=== PATIENT | male | born 1970 | race African-American/Black ===

== ENCOUNTER 2017-12-30 19:02 | Emergency (ER) | payer MEDICAID ==
[~2017-12-30] VITALS: Ht 190.5 cm; Wt 102.1 kg
[2017-12-30] MEDS ORDERED: AMOXIL250 MG ORAL (19:04)
--- NOTE | 2017-12-30 19:26 | Emergency Room Report ---
History of Present Illness General Chief Complaint: General Complaint Source: Patient Present Illness HPI 47 yo male patient presents to ER BIB ambulance complaining of cough with sputum and flu-like symptoms for a few days. EMS reported that he walked to EMS to be driven to ER. Reports going to [facility] but left before being seen because it was "too crowded." Patient reports hx of HIV, reports viral load is undetectable, reports CD4 count is high; reports taking antiviral medications. Reports has not taken medication today. Denies fever, chest pain, SOB. Complains of generalized abdominal pain and diarrhea x1 day; reports constipation symptoms for 3 days; states took enema today and had a bowel movement. Denies blood in stool. Also complains of vomiting; reports one episode of vomiting earlier today without blood following coughing symptoms. Patient reports able to eat food without difficulty. Sebastián ENRIQUEZ, vision changes, dysuria, hematuria. Allergies: Coded Allergies: No Known Allergies (Unverified , 12/30/17) Patient History Past Medical History: see triage record, HIV Reviewed Nursing Documentation: PMH: Agreed, PSxH: Agreed Review of Systems All Other Systems: negative except mentioned in HPI Physical Exam Vital Signs Date Time Temp Pulse Resp B/P (MAP) Pulse Ox O2 Delivery O2 Flow Rate FiO2 12/30/17 18:57 100.8 87 20 134/78 99 Room Air 100.8 Sp02 EP Interpretation: reviewed, normal General Appearance: well appearing, no apparent distress, alert, GCS 15, non- toxic Head: normocephalic, atraumatic Eyes: bilateral eye normal inspection, bilateral eye PERRL ENT: hearing grossly normal, normal pharynx, normal voice, TMs + canals normal , uvula midline, moist mucus membranes Neck: normal inspection, full range of motion, no bony tend Respiratory: normal inspection, lungs clear, normal breath sounds, no rhonchi, no accessory muscle use, no wheezing, speaking full sentences Cardiovascular #1: regular rate, rhythm Gastrointestinal: normal bowel sounds, non tender, soft, no mass, no organomegaly, non-distended, no guarding, no rebound Genitourinary: no CVA tenderness Musculoskeletal: back normal, digits/nails normal, gait/station normal, normal range of motion, no calf tenderness Neurologic: alert, oriented x3, responsive, motor strength/tone normal, sensory intact, normal gait Psychiatric: mood/affect normal Skin: no rash Lymphatic: adenopathy Medical Decision Making PA Attestation Dr. Franz is my supervising Physician whom patient management has been discussed with. Diagnostic Impression: Primary Impression: Cough Additional Impressions: Diarrhea Vomiting ER Course Pt. presents to the ED c/o cough, vomiting, and diarrhea. Ddx considered but are not limited to viral syndrome, gastritis, enteritis, UTI. Low suspicion for appendicitis at this time. Generalized abdominal pain, no localized abdominal pain on physical exam. Does not require imaging at this time. Vital signs: are WNL, pt. is afebrile. Ordered labs, pain medication, UA and NS. ER COURSE: UA unremarkable, negative for nitrites. Negative for urinary symptoms. Labs unremarkable, mild elevation in WBC likely due to cough and diarrhea symptoms. Discuss results with patient. Instructed patient to followup with primary care provider for followup of lab results. Likely viral cause of symptoms. Does not require treatment with antibiotics at this time. Diarrhea likely secondary to constipation symptoms. Drink plenty of fluids, do not become dehydrated. Patient feeling hungry, requesting sandwich; sandwich provided to patient. Does not require rx for nausea medication. Patient reports feeling much better following administration of fluids and pain medication. Patient reports understanding and agreement to treatment plan. Patient seen and evaluated by Dr. Franz; reviewed labs with Dr. Franz; patient stable for discharge to home. DISCHARGE: Rx provided for Tylenol Rx provided for Promethazine cough syrup. Patient instructed to remain hydrated, drink plenty of fluids. Patient questions asked and answered. Patient states understanding and agreement to treatment plan. At this time pt. is stable for d/c to home. Patient is resting comfortably, laughing, in no acute distress, nontoxic appearing. Will provide printed patient care instructions, and any necessary prescriptions. Care plan and follow up instructions have been discussed with the patient prior to discharge. Patient instructed to followup with PCP in 3-5 days. Patient questions asked and answered. ER precautions given; patient instructed to return to ER for new or worsening of symptoms including but not limited to fever, intractable vomiting, severe abdominal pain, blood in stool. Labs Test 12/30/17 19:50 White Blood Count 12.5 K/UL (4.8-10.8) Red Blood Count 3.79 M/UL (4.70-6.10) Hemoglobin 12.3 G/DL (14.2-18.0) Hematocrit 35.8 % (42.0-52.0) Mean Corpuscular Volume 94 FL (80-99) Mean Corpuscular Hemoglobin 32.3 PG (27.0-31.0) Mean Corpuscular Hemoglobin Concent 34.2 G/DL (32.0-36.0) Red Cell Distribution Width 11.9 % (11.6-14.8) Platelet Count 229 K/UL (150-450) Mean Platelet Volume 6.9 FL (6.5-10.1) Neutrophils (%) (Auto) 75.4 % (45.0-75.0) Lymphocytes (%) (Auto) 15.9 % (20.0-45.0) Monocytes (%) (Auto) 8.1 % (1.0-10.0) Eosinophils (%) (Auto) 0.1 % (0.0-3.0) Basophils (%) (Auto) 0.6 % (0.0-2.0) Urine Color Yellow Urine Appearance Clear Urine pH 9 (4.5-8.0) Urine Specific [place] 1.010 (1.005-1.035) Urine Protein 2+ (NEGATIVE) Urine Glucose (UA) Negative (NEGATIVE) Urine Ketones Negative (NEGATIVE) Urine Occult Blood Negative (NEGATIVE) Urine Nitrite Negative (NEGATIVE) Urine Bilirubin Negative (NEGATIVE) Urine Urobilinogen 4 MG/DL (0.0-1.0) Urine Leukocyte Esterase 1+ (NEGATIVE) Urine RBC 0-2 /HPF (0 - 0) Urine WBC 0-2 /HPF (0 - 0) Urine Squamous Epithelial Cells None /LPF (NONE/OCC) Urine Bacteria Occasional /HPF (NONE) Sodium Level 130 MMOL/L (136-145) Potassium Level 3.8 MMOL/L (3.5-5.1) Chloride Level 94 MMOL/L (98-107) Carbon Dioxide Level 27 MMOL/L (21-32) Anion Gap 9 mmol/L (5-15) Blood Urea Nitrogen 12 mg/dL (7-18) Creatinine 1.4 MG/DL (0.55-1.30) Estimat Glomerular Filtration Rate > 60 mL/min (>60) Glucose Level 110 MG/DL (74-106) Calcium Level 9.2 MG/DL (8.5-10.1) Total Bilirubin 1.1 MG/DL (0.2-1.0) Direct Bilirubin 0.2 MG/DL (0.0-0.3) Aspartate Amino Transf (AST/SGOT) 18 U/L (15-37) Alanine Aminotransferase (ALT/SGPT) 12 U/L (12-78) Alkaline Phosphatase 63 U/L (46-116) Total Protein 8.4 G/DL (6.4-8.2) Albumin 3.7 G/DL (3.4-5.0) Globulin 4.7 g/dL Albumin/Globulin Ratio 0.8 (1.0-2.7) Last Vital Signs Date Time Temp Pulse Resp B/P (MAP) Pulse Ox O2 Delivery O2 Flow Rate FiO2 12/30/17 18:57 100.8 87 20 134/78 99 Room Air 100.8 Disposition: HOME, SELF-CARE Condition: Stable Scripts Promethazine Hcl (PROMETHAZINE HCL*) 6.25 Mg/5 Ml Syrup 5 ML ORAL Q8H, #120 ML 0 Refills Prov: Tim Waddell 12/30/17 Acetaminophen* (TYLENOL EXTRA STRENGTH*) 500 Mg Tablet 500 MG ORAL Q8H Y for Prn Headache/Temp > 101, #30 TAB 0 Refills Prov: Tim Waddell 12/30/17 Patient Instructions: Constipation, Adult, [id number], Diarrhea, Adult, Easy- to-Read Additional Instructions: Followup with primary care provider in 3 -5 days. Drink plenty of fluids. Take medications as directed. Patient questions asked and answered. ER precautions given, patient instructed to return to ER immediately for any new or worsening of symptoms including but not limited to chest pain, SOB, fever , intractable vomiting, blood in stool Tim Waddell Dec 30, 2017 19:26
[2017-12-30] MEDS ORDERED: Ketorolac 30mg Inj IV ONE (19:30)
[2017-12-30 20:16] LABS: BASOPHILS % (AUTO) 0.6 % (0.0-2.0); EOSINOPHILS % (AUTO) 0.1 % (0.0-3.0); HEMATOCRIT 35.8 % (42.0-52.0); HEMOGLOBIN 12.3 G/DL (14.2-18.0); LYMPHOCYTES % (AUTO) 15.9 % (20.0-45.0); MEAN CORPUSCULAR VOLUME 94 FL (80-99); MONOCYTES % (AUTO) 8.1 % (1.0-10.0); NEUTROPHILS % (AUTO) 75.4 % (45.0-75.0); PLATELET COUNT 229 K/UL (150-450); RED BLOOD COUNT 3.79 M/UL (4.70-6.10); RED CELL DISTRIBUTION WIDTH 11.9 % (11.6-14.8); WHITE BLOOD COUNT 12.5 K/UL (4.8-10.8)
[2017-12-30 20:21] LABS: APPEARANCE,URINE CLEAR; BILIRUBIN, URINE NEGATIVE (NEGATIVE); GLUCOSE, URINE (UA) NEGATIVE (NEGATIVE); KETONES,URINE NEGATIVE (NEGATIVE); LEUKOCYTE ESTERASE ,URINE 1+ (NEGATIVE); NITRITE,URINE NEGATIVE (NEGATIVE); PH,URINE 9 (4.5-8.0); PROTEIN,URINE 2+ (NEGATIVE); UROBILINOGEN,URINE 4 MG/DL (0.0-1.0)
[2017-12-30 20:23] LABS: COLOR,URINE YELLOW
[2017-12-30 20:27] LABS: ANION GAP 9 mmol/L (5-15); BLOOD UREA NITROGEN 12 mg/dL (7-18); CALCIUM 9.2 MG/DL (8.5-10.1); CARBON DIOXIDE 27 MMOL/L (21-32); CHLORIDE 94 MMOL/L (98-107); CREATININE 1.4 MG/DL (0.55-1.30); POTASSIUM 3.8 MMOL/L (3.5-5.1); SODIUM 130 MMOL/L (136-145)
[2017-12-30] MEDS ORDERED: PROMETHAZI6.25 MG/1 ORAL (20:33)
[2017-12-30] MEDS ORDERED: TYLENOL EXTRA500 MG ORAL (20:33)
[2017-12-30 20:38] LABS: ALANINE AMINOTRANSFERASE 12 U/L (12-78); ALBUMIN 3.7 G/DL (3.4-5.0); ALBUMIN/GLOBULIN RATIO 0.8 (1.0-2.7); ALKALINE PHOSPHATASE 63 U/L (46-116); ASPARTATE AMINO TRANSFERASE 18 U/L (15-37); BILIRUBIN,TOTAL 1.1 MG/DL (0.2-1.0)
[2017-12-30 20:41] LABS: BILIRUBIN,DIRECT 0.2 MG/DL (0.0-0.3)
[2017-12-30 21:10] VITALS: BP 142/82
[2017-12-30 21:11] VITALS: BP 133/84
== END 2017-12-30 21:04 | disposition home or self-care (01) ==
LOC: EDBD 19:02 → EMR 19:10
DX: R05 Cough (principal); R11.10 Vomiting, unspecified; R19.7 Diarrhea, unspecified
CPT/HCPCS: 36415; 80053; 81003; 82248; 85025; 96374; 96375; 99284; J1885